=== PATIENT | female | born 1960 | race Caucasian/White ===

== ENCOUNTER 2017-12-12 14:21 | Inpatient (IN) | payer OTHER ==
[~2017-12-12] VITALS: Ht 170.2 cm; Wt 63.2 kg
[2017-12-12] MEDS ORDERED: LISI2.5T PO (14:36)
[2017-12-12] MEDS ORDERED: VERA120T5 PO (14:36)
[2017-12-12] MEDS ORDERED: ONDANSETRON 2MG/ML, 2ML IVPush ONE (15:00)
[2017-12-12] MEDS ORDERED: PANTOPRAZOLE 80 MG in SODIUM CHLORIDE 0.9% 50 ML IVPB ONE (15:00)
[2017-12-12] MEDS ORDERED: PANTOPRAZOLE 80 MG in SODIUM CHLORIDE 0.9% 100 ML IV SCH (15:15)
[2017-12-12 15:18] LABS: BASOPHILS # (AUTO) 0.03 x10^3/uL (0-0.1); BASOPHILS % (AUTO) 0 % (0-1); EOSINOPHILS # (AUTO) 0.03 x10^3/uL (0-0.4); EOSINOPHILS % (AUTO) 0 % (1-7); LYMPHOCYTES # (AUTO) 2.57 x10^3/uL (1-3.4); LYMPHOCYTES % (AUTO) 18 % (22-44); MD NO; MEAN CORPUSCULAR HEMOGLOBIN 32.9 pg (27.0-34.8); MEAN CORPUSCULAR HGB CONC 33.7 g/dL (32.4-35.8); MEAN CORPUSCULAR VOLUME 97.5 fL (80-100); MEAN PLATELET VOLUME 8.1 fL (7.4-10.4); MONOCYTES # (AUTO) 0.72 x10^3/uL (0.2-0.8); MONOCYTES % (AUTO) 5 % (2-9); NEUTROPHILS # (AUTO) 11.12 x10^3/uL (1.8-6.8); NEUTROPHILS % (AUTO) 77 % (42-75); PLATELET COUNT 204 x10^3/uL (130-400); RED BLOOD COUNT 3.05 x10^6/uL (3.82-5.3); RED CELL DISTRIBUTION WIDTH 13.7 % (9.6-15.2)
[2017-12-12 15:26] LABS: INTERNATIONAL NORMALIZED RATIO 1.01 (0.93-1.1); PROTHROMBIN TIME 10.5 Seconds (9.6-11.5)
[2017-12-12 15:29] LABS: ANION GAP 8 mmol/L (5-15); CALCIUM 7.9 mg/dL (8.5-10.1); CHLORIDE 106 mmol/L (98-107)
[2017-12-12 15:34] LABS: ALANINE AMINOTRANSFERASE 13 U/L (12-78); ALKALINE PHOSPHATASE 51 U/L (45-117); BILIRUBIN,TOTAL 0.4 mg/dL (0.2-1.0); TOTAL PROTEIN 5.8 g/dL (6.4-8.2)
[2017-12-12 17:30] VITALS: BP 125/68
[2017-12-12] MEDS ORDERED: ONDANSETRON 2MG/ML, 2ML IVPush PRN (18:00)
[2017-12-12] MEDS: NICOTINE 7 MG/24 HR PATCH.TD24 TD SCH (18:00)
[2017-12-12] MEDS ORDERED: ACETAMINOPHEN 325 MG TABLET PO PRN (18:00)
[2017-12-12 19:15] VITALS: BP 120/81
[2017-12-13 02:05] VITALS: BP 113/67
[2017-12-13] MEDS: PANTOPRAZOLE 40 MG IV IVPush SCH ×2 (03:02→15:23)
[2017-12-13] MEDS ORDERED: IRON SUCROSE COMPLEX 100MG/5ML IV ONE (06:30)
[2017-12-13 07:53] VITALS: BP 114/71
[2017-12-13] MEDS ORDERED: MIDAZOLAM 1 MG/ML, 5ML ONE (08:03)
[2017-12-13] MEDS ORDERED: FENTANYL PF 100 MCG/2ML ONE (08:03)
[2017-12-13 13:37] VITALS: BP 105/67
[2017-12-13] MEDS: PANTOPROZOLE 40MG TABLET PO SCH (16:14)
[2017-12-13] MEDS: NICOTINE 7 MG/24 HR PATCH.TD24 TD SCH (16:15)
[2017-12-13 21:17] VITALS: BP 108/70
[2017-12-14 02:57] VITALS: BP 96/68
[2017-12-14 07:30] VITALS: BP 112/75
[2017-12-14] MEDS ORDERED: PANT40TA5 PO (07:40)
[2017-12-14] MEDS ORDERED: ACET325T14 PO (07:40)
[2017-12-14] MEDS: PANTOPROZOLE 40MG TABLET PO SCH (07:56)
== END 2017-12-14 10:37 | disposition home or self-care (01) | DRG 381 ==
LOC: ED 15:56 → 4EST 17:23 → DCLOUNGE 12-14 10:11
PROVIDERS: ADMIT Internal Medicine; ATTEND Internal Medicine
PROC: 3E0G8GC Introduction of Other Therapeutic Substance into Upper GI, Via Natural or Artificial Opening Endoscopic (ICD-10-PCS; 2017-12-13)
PROC: 0DB78ZX Excision of Stomach, Pylorus, Via Natural or Artificial Opening Endoscopic, Diagnostic (ICD-10-PCS; principal; 2017-12-13 08:30)
DX: K22.11 Ulcer of esophagus with bleeding (principal); D62 Acute posthemorrhagic anemia; K25.4 Chronic or unspecified gastric ulcer with hemorrhage; F10.20 Alcohol dependence, uncomplicated; F17.210 Nicotine dependence, cigarettes, uncomplicated; K29.81 Duodenitis with bleeding; K29.71 Gastritis, unspecified, with bleeding; G43.909 Migraine, unspecified, not intractable, without status migrainosus; I10 Essential (primary) hypertension; K21.0 Gastro-esophageal reflux disease with esophagitis; K44.9 Diaphragmatic hernia without obstruction or gangrene; M67.431 Ganglion, right wrist; Z82.49 Family history of ischemic heart disease and other diseases of the circulatory system; Z90.49 Acquired absence of other specified parts of digestive tract
CPT/HCPCS: 36415; 80053; 80307; 83690; 85014; 85018; 85025; 85610; 85730; 86677; 86850; 86900; 88305; 93005; 96365; 96375; 99152; 99153; J1756; J2250; J3010; C9113

== ENCOUNTER → 2020-08-01 | Outpatient (CLI) | payer OTHER ==
[~2020-08-01] MED LIST: ACET325T14 PO; LISI2.5T PO; PANT40TA6 PO; VERA120T13 PO
== END | disposition home or self-care (01) ==
LOC: CVU 07:35
PROVIDERS: ATTEND Internal Medicine Cardiovascular Disease
DX: I10 Essential (primary) hypertension (principal); R94.31 Abnormal electrocardiogram [ECG] [EKG]
CPT/HCPCS: 93306

== ENCOUNTER 2020-12-05 10:18 | Outpatient (CLI) | payer OTHER | END 2020-12-05 23:59 | disposition home or self-care (01) | LOC: CFH 10:18 | PROVIDERS: ATTEND Nurse Practitioner Family | DX: Z12.2 Encounter for screening for malignant neoplasm of respiratory organs (principal); I25.10 Atherosclerotic heart disease of native coronary artery without angina pectoris; R91.8 Other nonspecific abnormal finding of lung field; Z87.891 Personal history of nicotine dependence | CPT/HCPCS: 71271 ==

== ENCOUNTER → 2021-03-10 | Outpatient (CLI) | payer OTHER | END | disposition home or self-care (01) | LOC: CFH 14:15 | PROVIDERS: ATTEND Nurse Practitioner Family | DX: R91.1 Solitary pulmonary nodule (principal); J43.2 Centrilobular emphysema; J98.4 Other disorders of lung | CPT/HCPCS: 71250 ==